=== PATIENT | male | born 1965 | race Caucasian/White ===

== ENCOUNTER 2024-01-14 15:05 | Emergency (ER) | payer BC ==
[2024-01-14] MEDS: Ketorolac 30 MG/ML SDV IM ONE (17:33)
== END 2024-01-14 18:20 | disposition home or self-care (01) ==
LOC: JP.ED 15:05
DX: M79.651 Pain in right thigh (principal); R55 Syncope and collapse
CPT/HCPCS: 96372; 99283; J1885